=== PATIENT | male | born 1960 | race Caucasian/White ===

== ENCOUNTER 2017-06-14 16:50 | Inpatient (IN) | payer OTHER ==
[2017-06-14 17:48] LABS: ADD MAN DIFF? NO
[2017-06-14 17:50] LABS: BASOPHILS % 0.4 % (0.0-2.0); EOSINOPHILS # 0.1 10^3/ul (0.0-0.5); EOSINOPHILS % 1.3 % (0.0-7.0); HEMATOCRIT 41.9 % (42.0-52.0); HEMOGLOBIN 14.3 g/dl (14.0-18.0); LYMPHOCYTES # 2.5 10^3/ul (0.8-2.9); LYMPHOCYTES % 22.6 % (15.0-51.0); MEAN CORPUSCULAR HEMOGLOBIN 29.2 pg (29.0-33.0); MEAN CORPUSCULAR HGB CONC 34.1 g/dl (32.0-37.0); MEAN CORPUSCULAR VOLUME 85.5 fl (82.0-101.0); MONOCYTE # 0.8 10^3/ul (0.3-0.9); MONOCYTES % 7.1 % (0.0-11.0); NEUTROPHIL # 7.4 10^3/ul (1.6-7.5); NEUTROPHILS % 68.2 % (39.0-77.0); PLATELET COUNT 313 10^3/UL (140-415); RED CELL DISTRIBUTION WIDTH 14.4 % (11.5-14.5)
[2017-06-14 17:50] LABS: WHITE BLOOD COUNT 10.9 10^3/ul (4.8-10.8)
[2017-06-14 18:04] LABS: HEMOGLOBIN A1C 6.2 % (0-5.9)
[2017-06-14 18:06] LABS: INR 0.99; PARTIAL THROMBOPLASTIN TIME 30.9 Sec (25.0-35.0); PROTIME 13.2 Sec (11.9-14.9)
[2017-06-14 18:08] LABS: ANION GAP 13 (8-16); BLOOD UREA NITROGEN 22 mg/dl (7-20); CALCIUM 9.2 mg/dl (8.4-10.2); CARBON DIOXIDE 23 mmol/L (21-31); CHLORIDE 109 mmol/L (97-110); CREATININE 0.86 mg/dl (0.61-1.24); GLUCOSE 122 mg/dl (70-220); POTASSIUM 4.2 mmol/L (3.5-5.1); SODIUM 141 mmol/L (135-144)
[2017-06-14 18:20] LABS: TROPONIN-I < 0.012 ng/ml (0.00-0.12)
[2017-06-14] MEDS: ASPIRIN 81 MG TAB PO (18:52)
[2017-06-14] MEDS: SOD CHLORIDE 0.9% 1,000 ML IV ×2 (18:52→22:15)
[2017-06-14] MEDS: LIDOCAINE/MYLANTA 40 ML BTL PO (18:52)
[2017-06-14] MEDS: LORAZEPAM 2 MG INJ IV (19:23)
[2017-06-14] MEDS: morphine 4 MG/ML VIAL IV (19:23)
[2017-06-14] MEDS ORDERED: ONDANSETRON 4 MG INJ IV ×2 (19:30→21:00)
[2017-06-14] MEDS ORDERED: ACETAMINOPHEN 325 MG TAB PO ×2 (19:30→21:00)
[2017-06-14] MEDS ORDERED: NACL 0.9% 3 ML SYG IV (21:00)
[2017-06-14 21:08] LABS: ADD UMIC NO; UR ASCORBIC ACID NEGATIVE (NEGATIVE); UR BILIRUBIN (Dip) NEGATIVE (NEGATIVE); UR BLOOD (Dip) NEGATIVE (NEGATIVE); UR CLARITY CLEAR (CLEAR); UR COLOR YELLOW (YELLOW); UR GLUCOSE (Dip) NEGATIVE (NEGATIVE); UR KETONES (Dip) NEGATIVE (NEGATIVE); UR LEUKOCYTE ESTERASE (Dip) NEGATIVE Leu/ul (NEGATIVE); UR NITRITE (Dip) NEGATIVE (NEGATIVE); UR TOTAL PROTEIN (Dip) NEGATIVE (NEGATIVE); UR UROBILINOGEN (Dip) 1+ mg/dL (NEGATIVE)
[2017-06-14 21:22] LABS: AMPHETAMINE/METHAMPHETAMINE Negative (NEGATIVE); CANNABINOIDS Positive (NEGATIVE)
[2017-06-14 21:29] LABS: BARBITURATES Negative (NEGATIVE); BENZODIAZEPINES Negative (NEGATIVE); COCAINE Negative (NEGATIVE); OPIATES Positive (NEGATIVE)
[2017-06-14] MEDS: morphine 2 MG INJ IV (22:13)
[2017-06-14 23:08] LABS: CREATINE KINASE 78 IU/L (23-200)
[2017-06-14 23:22] LABS: CK INDEX 0.9
[2017-06-14 23:28] LABS: CK-MB 0.71 ng/ml (0.0-2.4); TROPONIN-I < 0.012 ng/ml (0.00-0.12)
[2017-06-15] MEDS: morphine 2 MG INJ IV ×4 (01:29→13:45)
[2017-06-15] MEDS: ALBUTEROL HFA 8 GM INHALER INH ×5 (05:00→17:00)
[2017-06-15] MEDS: PANTOPRAZOLE (EC) 40 MG TAB PO (05:40)
[2017-06-15 07:45] LABS: ADD MAN DIFF? NO
[2017-06-15 07:48] LABS: WHITE BLOOD COUNT 7.9 10^3/ul (4.8-10.8)
[2017-06-15 07:48] LABS: BASOPHIL # 0.1 10^3/ul (0.0-0.1); BASOPHILS % 0.6 % (0.0-2.0); EOSINOPHILS # 0.2 10^3/ul (0.0-0.5); EOSINOPHILS % 2.5 % (0.0-7.0); HEMATOCRIT 38.5 % (42.0-52.0); HEMOGLOBIN 12.8 g/dl (14.0-18.0); LYMPHOCYTES # 2.3 10^3/ul (0.8-2.9); LYMPHOCYTES % 29.1 % (15.0-51.0); MEAN CORPUSCULAR HEMOGLOBIN 28.9 pg (29.0-33.0); MEAN CORPUSCULAR HGB CONC 33.2 g/dl (32.0-37.0); MEAN CORPUSCULAR VOLUME 86.9 fl (82.0-101.0); MONOCYTE # 0.8 10^3/ul (0.3-0.9); MONOCYTES % 9.6 % (0.0-11.0); NEUTROPHIL # 4.6 10^3/ul (1.6-7.5); NEUTROPHILS % 57.9 % (39.0-77.0); PLATELET COUNT 273 10^3/UL (140-415); RED BLOOD COUNT 4.43 10^6/ul (4.70-6.10); RED CELL DISTRIBUTION WIDTH 14.3 % (11.5-14.5)
[2017-06-15 08:07] LABS: ALANINE AMINOTRANSFERASE 30 IU/L (13-69); ALBUMIN 3.4 g/dl (3.3-4.9); ALBUMIN/GLOBULIN RATIO 1.13; ALKALINE PHOSPHATASE 47 IU/L (42-121); ANION GAP 9 (8-16); ASPARTATE AMINO TRANSFERASE 19 IU/L (15-46); BILIRUBIN,INDIRECT 0.1 mg/dl (0-1.1); BILIRUBIN,TOTAL 0.1 mg/dl (0.2-1.3); BLOOD UREA NITROGEN 22 mg/dl (7-20); CALCIUM 8.7 mg/dl (8.4-10.2); CARBON DIOXIDE 24 mmol/L (21-31); CHLORIDE 109 mmol/L (97-110); CHOL/HDL RATIO 7.2 RATIO; CHOLESTEROL 175 mg/dl (100-200); CREATININE 0.78 mg/dl (0.61-1.24); GLUCOSE 113 mg/dl (70-220); HDL CHOLESTEROL 24 mg/dl (28-71); LDL CHOLESTEROL,CALCULATED 119 mg/dl; MAGNESIUM 1.8 mg/dl (1.7-2.5); POTASSIUM 4.4 mmol/L (3.5-5.1); SODIUM 138 mmol/L (135-144); TOTAL PROTEIN 6.4 g/dl (6.1-8.1); TRIGLYCERIDES 160 mg/dl (0-149)
[2017-06-15 08:17] LABS: CK-MB 0.69 ng/ml (0.0-2.4); TROPONIN-I < 0.012 ng/ml (0.00-0.12)
[2017-06-15 08:29] LABS: CK INDEX 0.9; CREATINE KINASE 75 IU/L (23-200)
[2017-06-15] MEDS: ASPIRIN (EC) 81 MG TAB PO (09:02)
[2017-06-15] MEDS: LORAZEPAM 2 MG INJ IV (14:56)
[2017-06-15] MEDS ORDERED: NITROGLYCERIN (SL) 0.4 MG TAB SL (16:00)
[2017-06-15] MEDS ORDERED: morphine 2 MG INJ IV (19:00)
[2017-06-16] MEDS ORDERED: LOSARTAN 25 MG TAB PO (09:00)
== END 2017-06-15 17:09 | disposition home or self-care (01) | DRG 69 ==
LOC: E/R 16:50 → MS4 19:25
DX: G45.9 Transient cerebral ischemic attack, unspecified (principal); E78.5 Hyperlipidemia, unspecified; K21.9 Gastro-esophageal reflux disease without esophagitis; F17.210 Nicotine dependence, cigarettes, uncomplicated; R07.89 Other chest pain
CPT/HCPCS: 36415; 70450; 71045; 80048; 80053; 80061; 80307; 81003; 82550; 82553; 83036; 83735; 84443; 84484; 85025; 85610; 85730; 92610; 93005; 93306; 96374; 96375; 99285-25